=== PATIENT | female | born 1995 | race African-American/Black ===

== ENCOUNTER 2019-05-19 16:47 | Emergency (ER) | payer BC ==
[~2019-05-19] VITALS: Ht 167.6 cm; Wt 72.7 kg
[2019-05-19] MEDS ORDERED: SSD25 GM TP (17:37)
[2019-05-19] MEDS ORDERED: NORCO 325 MG-51 TAB PO (17:37)
[2019-05-19 18:02] VITALS: BP 118/76; PULSE 86; TEMP 98.1
== END 2019-05-19 18:03 | disposition home or self-care (01) ==
LOC: COL.ER 16:47
DX: T24.212A Burn of second degree of left thigh, initial encounter (principal); X12.XXXA Contact with other hot fluids, initial encounter; Y92.009 Unspecified place in unspecified non-institutional (private) residence as the place of occurrence of the external cause